=== PATIENT | male | born 1960 | race Caucasian/White ===

== ENCOUNTER 2024-04-13 12:41 | Emergency (ER) | payer OTHER ==
[~2024-04-13] VITALS: Ht 180.3 cm; Wt 90.7 kg
[~2024-04-13 12:41] MED LIST: ACET325 PO; ATOR10 PO; Azor 10-40 MG1 EACH PO; CLON.5 PO; DOCU100 PO; IBUP800 PO; METO100ER PO; MIRT15 PO; OMEP20ER PO; OXYC10TA19 PO
[2024-04-13 13:59] LABS: BASOPHILS ABSOLUTE AUTO 0.07 K/mm3 (0.00-0.23); BASOPHILS PERCENT AUTO 1 % (0-2); EOSINOPHILS ABSOLUTE AUTO 0.06 K/mm3 (0.00-0.68); EOSINOPHILS PERCENT AUTO 1 % (0-6); Hematocrit 44.7 % (37.0-53.0); Hemoglobin 16.4 g/dL (13.5-17.5); IMMATURE GRAN ABSOLUTE AUTO 0.07 K/mm3 (0.00-0.10); IMMATURE GRAN PERCENT AUTO 1 % (0-1); LYMPHOCYTES ABSOLUTE AUTO 0.73 K/mm3 (0.84-5.20); LYMPHOCYTES PERCENT AUTO 8 % (21-46); MONOCYTES ABSOLUTE AUTO 1.36 K/mm3 (0.16-1.47); MONOCYTES PERCENT AUTO 15 % (4-13); Mean Corpuscular HGB Conc 36.7 g/dL (31.5-36.5); Mean Corpuscular Volume 90 fL (80-100); Mean Platelet Volume 9.2 fL (9.1-12.4); NEUTROPHILS PERCENT AUTO 74 % (41-73); Platelet Count 236 K/mm3 (150-400); RDW Coefficient Variation 11.2 % (11.7-14.2); RDW Standard Deviation 36.1 fL (35.1-46.3); Red Blood Cell Count 4.97 M/mm3 (4.30-5.90); White Blood Cell Count 8.89 K/mm3 (4.00-11.30)
[2024-04-13] MEDS ORDERED: Digoxin 0.25 MG/ML 2ML Amp IV ONE (14:20)
[2024-04-13] MEDS ORDERED: Metoprolol Tartrate 1 MG/ML 5 ML VIAL IV PRN (14:20)
[2024-04-13] MEDS ORDERED: Apixaban 5 MG Tab PO ONE (14:20)
[2024-04-13 14:33] LABS: Albumin, Blood 3.8 g/dL (3.4-5.0); Albumin/Globulin Ratio 0.9 (0.8-1.8); Bilirubin, Total 2.4 mg/dL (0.1-1.0); Bun/Creatinine Ratio 24.2 (12.0-20.0); Calcium, Blood 10.1 mg/dL (8.5-10.1); Creatinine, Blood 1.24 mg/dL (0.60-1.20); Globulin, Blood 4.2 g/dL (2.2-4.0); Potassium, Blood 3.3 mmol/L (3.5-5.5)
[2024-04-13] MEDS ORDERED: ELIQUIS5 M2 PO (16:24)
[2024-04-13] MEDS ORDERED: Cardizem CD 12120 MG PO (16:24)
[2024-04-13 16:26] VITALS: BP 161/107
== END 2024-04-13 16:27 | disposition home or self-care (01) ==
LOC: ER 12:41
PROVIDERS: Student in an Organized Health Care Education/Training Program
DX: I48.91 Unspecified atrial fibrillation (principal); F10.90 Alcohol use, unspecified, uncomplicated; I10 Essential (primary) hypertension; E11.9 Type 2 diabetes mellitus without complications; Z79.899 Other long term (current) drug therapy
CPT/HCPCS: 71046; 80053; 84443; 84484; 85025; 93005; 93010; 96374; 96375; 99285-25; A9270; J1160

== ENCOUNTER 2024-07-01 06:56 | Day surgery (SDC) | payer OTHER ==
[~2024-07-01] VITALS: Ht 180.3 cm; Wt 87.5 kg
[~2024-07-01 06:56] MED LIST changes: +ALLO100 PO; +AMLO5 PO; +Cardizem CD 12120 MG PO; +Crestor40 MG PO; +ELIQUIS5 M2 PO; +Flecainide Acet50 MG PO; +HYDCHL25 PO; +METF500 PO
[2024-07-01] MEDS ORDERED: NS 1,000 ML IV ONE (06:58)
[2024-07-01] MEDS ORDERED: Potassium Chloride 20 MEQ TabCR PO ONE (07:25)
--- NOTE | 2024-07-01 07:42 | NUR ---
ASSUMED CARE FROM ANESTHESIA. PT AWAKE AND VERBALIZING WELL. SR 60-65 BPM.
[2024-07-01 07:45] VITALS: BP 146/74
[2024-07-01 07:48] VITALS: BP 143/75
[2024-07-01 07:51] VITALS: BP 153/77
[2024-07-01 07:54] VITALS: BP 154/81
[2024-07-01 07:57] VITALS: BP 154/84
[2024-07-01 08:00] VITALS: BP 156/90
--- NOTE | 2024-07-01 08:20 | NUR ---
PT VERBALIZED UNDERSTANDING OF WRITTEN AND VERBAL D/C INST. IV REMOVED. PT TAKEN OUT OF THE [facility]RT [facility]ENTER VIA W/C. SR 60-65BPM ON D/C.
--- NOTE | 2024-07-01 10:37 | NUR ---
PATIENT TOLERATED MELLY PROCEDURE WELL WITH ANESTHESIA. SEE ANESTHESIA NOTES FOR DETAIL
[2024-07-01] MEDS ORDERED: Propofol 10mg/ml 20 ml Vial (Procedural) IV ONE (16:15)
== END 2024-07-01 23:00 | disposition home or self-care (01) ==
LOC: MHTC 06:56
DX: I48.19 Other persistent atrial fibrillation (principal); I10 Essential (primary) hypertension; E11.9 Type 2 diabetes mellitus without complications; E78.5 Hyperlipidemia, unspecified; Z79.84 Long term (current) use of oral hypoglycemic drugs; Z79.899 Other long term (current) drug therapy
CPT/HCPCS: 92960; 93005; 93010; A9270; J2704; J7030

== ENCOUNTER 2024-08-19 08:30 | Day surgery (SDC) | payer OTHER ==
[~2024-08-19] VITALS: Ht 180.3 cm; Wt 88.5 kg
[2024-08-19 12:30] VITALS: BP 147/74
== END 2024-08-19 13:15 | disposition home or self-care (01) ==
LOC: MHTC 08:30
DX: R94.39 Abnormal result of other cardiovascular function study (principal); I25.10 Atherosclerotic heart disease of native coronary artery without angina pectoris; I48.91 Unspecified atrial fibrillation; E11.9 Type 2 diabetes mellitus without complications; E78.5 Hyperlipidemia, unspecified; I10 Essential (primary) hypertension; Z79.899 Other long term (current) drug therapy